=== PATIENT | female | born 1970 | race Caucasian/White ===

== ENCOUNTER 2021-11-08 06:04 | Observation (INO) | payer BC, MEDICAID ==
[2021-11-08] MEDS ORDERED: Sodium Chloride 0.9% 1,000 ML IV ONE (07:38)
[2021-11-08] MEDS ORDERED: Ondansetron 4 MG/2 ML SDV IVPUSH ONE (07:38)
[2021-11-08] MEDS ORDERED: Sodium Chloride 0.9% 10 ML Syringe FLUSH PRN ×2 (07:38→12:47)
[2021-11-08] MEDS ORDERED: Sodium Chloride 0.9% 2.5 ML Syringe FLUSH PRN ×2 (07:38→12:47)
[2021-11-08] MEDS ORDERED: Ketorolac 30 MG/ML SDV IVPUSH ONE (07:38)
[2021-11-08 08:32] LABS: CARBON DIOXIDE,CO2 21.1 mmol/L (21.0-32.0); POTASSIUM,K 3.7 mmol/L (3.5-5.1)
[2021-11-08] MEDS ORDERED: fentaNYL 50 MCG/ML SDV IVPUSH ONE (09:27)
[2021-11-08] MEDS ORDERED: Piperacillin/Tazobactam 3.375 GM in Sodium Chloride 0.9% 50 ML IV ONE (12:19)
[2021-11-08] MEDS ORDERED: Sodium Chloride 0.9% 20 ML SDV IV PRN (12:47)
[2021-11-08] MEDS ORDERED: HYDROmorphone 1 MG/ML Syringe IVPUSH PRN (12:47)
[2021-11-08] MEDS ORDERED: Polyethylene Glycol 3350 Powder 17 GM Packet PO PRN (12:47)
[2021-11-08] MEDS ORDERED: Ondansetron 4 MG/2 ML SDV IVPUSH PRN (12:47)
[2021-11-08] MEDS ORDERED: diphenhydrAMINE 50 MG/ML SDV IVPUSH PRN (12:47)
[2021-11-08] MEDS ORDERED: Lactated Ringers 1,000 ML IV SCH (13:00)
[2021-11-08] MEDS: Pantoprazole 40 MG Tab.CR PO SCH (13:33)
[2021-11-08] MEDS: Lactated Ringers 1,000 ML IV SCH ×2 (13:34→22:29)
[2021-11-08] MEDS: Acetaminophen/HYDROcodone 325-5 MG Tab PO PRN ×2 (15:26→21:04)
[2021-11-08] MEDS: Piperacillin/Tazobactam 3.375 GM in Sodium Chloride 0.9% 50 ML IV SCH (17:40)
[2021-11-09] MEDS: Piperacillin/Tazobactam 3.375 GM in Sodium Chloride 0.9% 50 ML IV SCH ×3 (00:04→12:12)
[2021-11-09] MEDS: Acetaminophen/HYDROcodone 325-5 MG Tab PO PRN (01:26)
[2021-11-09] MEDS ORDERED: Bupivacaine 0.5% 30 ML SDV ONE (06:03)
[2021-11-09] MEDS ORDERED: Midazolam 1 MG/ML 2 ML SDV ONE (06:05)
[2021-11-09] MEDS ORDERED: Rocuronium Bromide 50 MG/5 ML Syringe ONE ×2 (06:05→06:57)
[2021-11-09] MEDS ORDERED: fentaNYL 100 MCG/2 ML SDV ONE (06:05)
[2021-11-09] MEDS ORDERED: Propofol 200 MG/20 ML SDV ONE (06:05)
[2021-11-09] MEDS ORDERED: Dexmedetomidine 200 MCG/2 ML SDV ONE (06:05)
[2021-11-09] MEDS ORDERED: Water For Injection, Sterile 20 ML ONE (06:05)
[2021-11-09] MEDS ORDERED: Ketamine 500 mg/10 ML MDV ONE (06:44)
[2021-11-09] MEDS: Lactated Ringers 1,000 ML IV SCH (06:49)
[2021-11-09] MEDS ORDERED: Levothyroxine 100 MCG Tab PO SCH (07:30)
[2021-11-09] MEDS ORDERED: HYDROmorphone 1 MG/ML Syringe IVPUSH PRN (07:34)
[2021-11-09] MEDS ORDERED: fentaNYL 100 MCG/2 ML SDV IVPUSH PRN (07:34)
[2021-11-09] MEDS ORDERED: Morphine 2 MG/ML SYRINGE IVPUSH PRN (07:34)
[2021-11-09] MEDS ORDERED: Metoclopramide 10 MG/2 ML SDV IVPUSH PRN (07:34)
[2021-11-09] MEDS ORDERED: Albuterol 0.083% 2.5 MG/3 ML Neb Soln NEB PRN (07:34)
[2021-11-09] MEDS ORDERED: Ondansetron 4 MG/2 ML SDV IVPUSH PRN (07:34)
[2021-11-09] MEDS ORDERED: Naloxone 0.4 MG/ML SDV IVPUSH PRN (07:34)
[2021-11-09] MEDS ORDERED: Sugammadex Sodium 200 MG/2 ML VIAL ONE (07:36)
[2021-11-09] MEDS: Pantoprazole 40 MG Tab.CR PO SCH (08:55)
[2021-11-09] MEDS ORDERED: Lisinopril 10 MG Tab PO SCH (09:00)
[2021-11-09] MEDS ORDERED: atorvaSTATin 10 MG Tab PO SCH (09:00)
[2021-11-09] MEDS ORDERED: Ketorolac 30 MG/ML SDV IVPUSH PRN (12:00)
== END 2021-11-09 17:15 | disposition home or self-care (01) ==
LOC: MW.ED 06:04 → MW.MS 12:17
PROVIDERS: ADMIT Surgery; ATTEND Surgery
DX: K35.33 Acute appendicitis with perforation, localized peritonitis, and gangrene, with abscess (principal); K38.8 Other specified diseases of appendix; I10 Essential (primary) hypertension; E78.00 Pure hypercholesterolemia, unspecified; F17.210 Nicotine dependence, cigarettes, uncomplicated; K21.9 Gastro-esophageal reflux disease without esophagitis; Z88.0 Allergy status to penicillin; Z01.812 Encounter for preprocedural laboratory examination; Z20.822 Contact with and (suspected) exposure to COVID-19; Z79.890 Hormone replacement therapy; Z98.890 Other specified postprocedural states
CPT/HCPCS: 36415; 44970; 49329; 74176; 80053; 81003; 83690; 84703; 85025; 87635; 96365; 96375; 96376; 99285; A9270; G0378; J1885; J2250; J2405; J2543; J2704; J3010; J3490; J7030; J7120; 00840; 99284; U0002